=== PATIENT | female | born 1970 | race Two or more races ===

== ENCOUNTER → 2025-01-18 | Outpatient (CLI) | payer OTHER, SELFPAY ==
--- NOTE | 2025-01-18 14:29 | XR_ITS ---
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
== END | disposition home or self-care (01) ==
LOC: CDIM 14:11
PROVIDERS: PCP Family Medicine; Referring Provider Physician Assistant; Visit Provider Physician Assistant
DX: M19.09 Primary osteoarthritis, other specified site (principal); S43.6 Sprain of sternoclavicular joint; X58.XXXD Exposure to other specified factors, subsequent encounter
CPT/HCPCS: 73000

== ENCOUNTER → 2025-03-06 | Outpatient (CLI) | payer OTHER, SELFPAY ==
--- NOTE | 2025-03-06 14:30 | XR_ITS ---
Examination: Thyroid sonography complete Grayscale sonographic images thyroid lobes Date and time: March 06, 2025 1446 hours INDICATIONS: Right neck palpable mass beginning 2 months ago FINDINGS: Right thyroid 4.0 cm Midpole cyst with internal echoes 8 x 4 x 7 mm Left thyroid 3.7 cm Upper pole cyst 4 x 3 mm No solid nodules IMPRESSION: Bilateral thyroid cysts
== END | disposition home or self-care (01) ==
PROVIDERS: PCP Family Medicine; Referring Provider Family Medicine; Visit Provider Family Medicine
DX: E04.1 Nontoxic single thyroid nodule (principal)
CPT/HCPCS: 76536